=== PATIENT | female | born 1935 | race Caucasian/White ===

== ENCOUNTER → 2016-10-03 | Outpatient (CLI) | payer MEDICARE, BC ==
[~2016-10-03] MED LIST: AMARYL1 MG PO; ASPIRIN 32325 MG/TAB PO; ASPIRIN E.C. 8181 MG PO; BENADRYL25 M2 PO; CITRACAL + D CA1 TAB PO; DULERA1 AR1 IH; EFFEXOR 3737.5 MG/TA PO; KLOR-CON M2020 MEQ PO; LIPITOR 80MG80 MG PO; NEURONTIN100 MG/CAP PO; NICODERM C14 MG/PATC TD; NORVASC 10MG10 MG PO; RT SPIRIVA18 MCG IH; XOPENEX 1.1.25 MG/3 IH
== END ==
LOC: MC.RAD 07:00
DX: D24.1 Benign neoplasm of right breast (principal)

== ENCOUNTER → 2017-03-06 | Outpatient (CLI) | payer MEDICARE, BC | LOC: COL.RAD 08:52 | DX: M48.56XA Collapsed vertebra, not elsewhere classified, lumbar region, initial encounter for fracture (principal); M48.54XA Collapsed vertebra, not elsewhere classified, thoracic region, initial encounter for fracture; M47.816 Spondylosis without myelopathy or radiculopathy, lumbar region; K44.9 Diaphragmatic hernia without obstruction or gangrene; I70.0 Atherosclerosis of aorta; K59.00 Constipation, unspecified; D71 Functional disorders of polymorphonuclear neutrophils; E27.8 Other specified disorders of adrenal gland | CPT/HCPCS: A9503 ==

== ENCOUNTER → 2017-03-11 | Outpatient (REF) ==
[2017-03-11 14:39] LABS: PH 7 (5-8); SQUAMOUS EPITHELIAL 0-2 /hpf; URINE APPEARANCE Clear; URINE BACTERIA Rare /hpf; URINE BILIRUBIN Negative (NEGATIVE); URINE BLOOD 1+ (NEGATIVE); URINE COLOR Straw; URINE GLUCOSE Negative (NEGATIVE); URINE KETONE Negative (NEGATIVE); URINE UROBILINOGEN Negative (NEGATIVE); URINE WBC >50 /hpf
== END ==
LOC: ZCOL.LAB 14:29
PROVIDERS: Internal Medicine
DX: Z01.89 Encounter for other specified special examinations (principal)

== ENCOUNTER → 2017-04-24 | Outpatient (CLI) | payer MEDICARE, BC ==
[~2017-04-24] VITALS: Ht 160 cm; Wt 66.9 kg
[2017-04-24 12:13] VITALS: BP 132/69; PULSE 76
[2017-04-24 13:26] VITALS: BP 151/72; PULSE 75
== END ==
LOC: COL.RAD 11:47
DX: M47.26 Other spondylosis with radiculopathy, lumbar region (principal)
CPT/HCPCS: J3301

== ENCOUNTER 2017-07-27 20:57 | Inpatient (IN) | payer MEDICARE, BC ==
[~2017-07-27] VITALS: Ht 157.5 cm; Wt 71.3 kg
[2017-07-27 21:27] LABS: BASO # 0.1 (0.0-0.2); BASO % 0.5 % (0.0-2.0); EOS # 0.7 (0.0-0.7); EOS % 5.9 % (0-4.0); GRAN # 7.3 (1.4-6.5); GRAN % 66.6 % (42.2-75.2); HEMATOCRIT 40.1 % (37.0-47.0); HEMOGLOBIN 11.7 g/dl (12.5-16.0); LYMPH % 17.9 % (20.0-51.0); MEAN CELL VOLUME 77 fl (80.0-100.0); MEAN CORPUSCULAR HEMOGLOBIN 23 pg (27.0-31.0); MEAN CORPUSCULAR HGB CONC 29 g/dl (33.0-37.0); MEAN PLATELET VOLUME 9.2 fl (7.4-10.4); MONO % 8.7 % (1.7-9.3); PLATELET COUNT 323 K/mm3 (130-400); RED BLOOD COUNT 5.18 M/mm3 (4.10-5.30)
[2017-07-27 21:32] LABS: INR 1.1 (0.8-3.0)
[2017-07-27 21:36] LABS: ADJUSTED CALCIUM 9.2 mg/dL (8.4-10.2); ALANINE AMINOTRANSFERASE 39 U/L (9-52); ALBUMIN 4.3 gm/dL (3.5-5.0); ALKALINE PHOSPHATASE 141 U/L (50-136); ANION GAP 9 mmol/L (7-16); BILIRUBIN,TOTAL 0.4 mg/dL (0.0-1.0); BLOOD UREA NITROGEN 19 mg/dL (7-17); CALCIUM 9.4 mg/dL (8.4-10.2); CARBON DIOXIDE 29 mmol/L (22-30); CHLORIDE 102 mmol/L (98-107); CREATININE, serum 0.96 mg/dL (0.52-1.25); GLUCOSE 69 mg/dL (74-106); SODIUM 140 mmol/L (137-145); TOTAL PROTEIN 7.8 gm/dL (6.4-8.2)
[2017-07-27 21:45] LABS: ARTERIAL BLD GAS O2 SATURATION 92.4 % (92-100); ARTERIAL BLD GAS TCO2 CT 30.6; ARTERIAL BLOOD GAS BASE EXCESS 3.1 (-2-2); ARTERIAL BLOOD GAS HCO3 29.1 meq/L (22-26); ARTERIAL BLOOD GAS PHT 7.38 C (7.35-7.45); ARTERIAL BLOOD GAS PO2 65.1 mmHg (80-100); ARTERIAL BLOOD GAS PO2T 65.1 (80-100); ARTERIAL BLOOD GAS pH 7.38 (7.35-7.45)
[2017-07-27 21:46] LABS: ALLEN TEST YES; ALLENS TEST RESULT PASS; ATS? YES
[2017-07-27 21:47] LABS: B-TYPE NATRIURETIC PEPTIDE 375 pg/mL (0-450)
[2017-07-27] MEDS ORDERED: ATIVAN 0.50.5 MG/TAB PO (21:49)
[2017-07-27] MEDS ORDERED: OXY IR5 MG PO (21:49)
[2017-07-27 21:52] LABS: TROPONIN-I < 0.012 ng/mL (0.000-0.034)
[2017-07-28] VITALS (844 sets, daily range): BP systolic 126–143; BP diastolic 69–80; PULSE 77–91; TEMP 97.5–98.5; O2SAT 58–100
[2017-07-28 00:12] LABS: ALLEN TEST YES; ALLENS TEST RESULT PASS; ARTERIAL BLD GAS O2 SATURATION 93.4 % (92-100); ARTERIAL BLD GAS TCO2 CT 20.9; ARTERIAL BLOOD GAS BASE EXCESS -4.6 (-2-2); ARTERIAL BLOOD GAS HCO3 19.8 meq/L (22-26); ARTERIAL BLOOD GAS pH 7.38 (7.35-7.45); ATS? YES; OXYHEMOGLOBIN 92.5 %
[2017-07-28 05:59] LABS: BASO % 0.3 % (0.0-2.0); EOS % 0.1 % (0-4.0); GRAN # 8.7 (1.4-6.5); GRAN % 93.8 % (42.2-75.2); LYMPH # 0.5 (1.2-3.4); LYMPH % 4.9 % (20.0-51.0); MEAN CELL VOLUME 77 fl (80.0-100.0); MEAN CORPUSCULAR HGB CONC 29 g/dl (33.0-37.0); MEAN PLATELET VOLUME 9.8 fl (7.4-10.4); MONO % 0.4 % (1.7-9.3); PLATELET COUNT 307 K/mm3 (130-400); RED BLOOD COUNT 4.72 M/mm3 (4.10-5.30); WHITE BLOOD COUNT 9.3 K/mm3 (4.8-10.8)
[2017-07-28 06:06] LABS: HEMATOCRIT 36.3 % (37.0-47.0); HEMOGLOBIN 10.5 g/dl (12.5-16.0); MEAN CORPUSCULAR HEMOGLOBIN 22 pg (27.0-31.0)
[2017-07-28 06:10] LABS: CALCIUM 8.9 mg/dL (8.4-10.2); POTASSIUM 3.9 mmol/L (3.4-5.0)
[2017-07-28 10:17] LABS: ARTERIAL BLD GAS O2 SATURATION 89.3 % (92-100); ARTERIAL BLOOD GAS BASE EXCESS 0.6 (-2-2); ARTERIAL BLOOD GAS HCO3 25.7 meq/L (22-26); ARTERIAL BLOOD GAS PO2 58.6 mmHg (80-100); OXYHEMOGLOBIN 88.4 %
[2017-07-28 10:18] LABS: ALLEN TEST YES; ALLENS TEST RESULT PASS; ATS? YES
[2017-07-29] VITALS (405 sets, daily range): BP systolic 122–145; BP diastolic 58–75; PULSE 73–89; TEMP 97.6–99.1; O2SAT 72–100
[2017-07-29 06:39] LABS: MEAN CELL VOLUME 76 fl (80.0-100.0); MEAN CORPUSCULAR HGB CONC 30 g/dl (33.0-37.0); MEAN PLATELET VOLUME 9.8 fl (7.4-10.4); PLATELET COUNT 332 K/mm3 (130-400); RED BLOOD COUNT 4.54 M/mm3 (4.10-5.30); WHITE BLOOD COUNT 15.2 K/mm3 (4.8-10.8)
[2017-07-29 06:44] LABS: ADD PATHOLOGY DIFF REVIEW NO; HEMATOCRIT 34.3 % (37.0-47.0); HEMOGLOBIN 10.2 g/dl (12.5-16.0); MEAN CORPUSCULAR HEMOGLOBIN 22 pg (27.0-31.0)
[2017-07-29 06:55] LABS: CALCIUM 8.7 mg/dL (8.4-10.2); CREATININE, serum 1.13 mg/dL (0.52-1.25); POTASSIUM 3.5 mmol/L (3.4-5.0)
[2017-07-29 07:49] LABS: BAND 4 % (0-10); LYMPHOCYTE 3 % (20.0-51.0); NEUTROPHILS 91 % (42.0-75.2); TOTAL CELLS COUNTED 100
[2017-07-29 07:50] LABS: ANISOCYTOSIS 1+; PLATELET ESTIMATE NORMAL (NORMAL); TARGET CELLS 1+; TOXIC GRANULATION PRESENT
[2017-07-30 00:02] VITALS: BP 130/60; PULSE 80; TEMP 98.1
[2017-07-30 03:35] VITALS: PULSE 78
[2017-07-30 08:24] VITALS: BP 117/71; PULSE 81; TEMP 97.8
[2017-07-30 11:28] VITALS: BP 144/62; PULSE 86; TEMP 97.3
[2017-07-30] MEDS ORDERED: FERROUS SU325 MG/TAB PO (12:51)
[2017-07-30] MEDS ORDERED: MUCINEX DM 30 M1 TE1 PO (12:53)
[2017-07-30] MEDS ORDERED: PREDNISONE20 MG PO (12:55)
[2017-07-30] MEDS ORDERED: INCRUSE EL62.5 MCG/A IH (12:56)
[2017-07-30] MEDS ORDERED: RT ADVAIR HFA 1112 G IH (12:59)
[2017-07-30] MEDS ORDERED: ZITHROMAX Z PA250 MG PO (13:59)
== END 2017-07-30 16:35 | disposition home health service (06) | DRG 189 ==
LOC: COL.ER 20:57 → MEDICAL 22:03 → ICU 22:03 → MEDICAL 07-29 09:14
PROVIDERS: Family Medicine; Internal Medicine; Nurse Practitioner Family
DX: J96.01 Acute respiratory failure with hypoxia (principal); J44.1 Chronic obstructive pulmonary disease with (acute) exacerbation; J96.02 Acute respiratory failure with hypercapnia; Z66 Do not resuscitate; I10 Essential (primary) hypertension; D50.9 Iron deficiency anemia, unspecified; E11.9 Type 2 diabetes mellitus without complications; F17.210 Nicotine dependence, cigarettes, uncomplicated; Z79.84 Long term (current) use of oral hypoglycemic drugs
CPT/HCPCS: 99223-AI; 99239; J1815; J2060; J2930; J7030